=== PATIENT | female | born 1940 | race Caucasian/White ===

== ENCOUNTER 2017-02-16 11:03 | Emergency (ER) | payer OTHER ==
[~2017-02-16] VITALS: Ht 157.5 cm; Wt 82.1 kg
[2017-02-16] MEDS ORDERED: NACL 0.9% 1,000 ML IV ONE (11:08)
[2017-02-16 11:12] VITALS: BP_SYST 149
[2017-02-16] MEDS ORDERED: PANTOPRAZOLE SODIUM 40 MG/VIAL (PROTONIX) IVP ONE (11:15)
[2017-02-16] MEDS ORDERED: ONDANSETRON HCL 4 MG/2 ML VIAL IM ONE (11:15)
--- NOTE | 2017-02-16 11:19 | NUR ---
Patient to ER bed 08 to gown for evaluation. Side rails up.
--- NOTE | 2017-02-16 11:20 | NUR ---
Urine collected and sent to lab.
[2017-02-16 11:43] LABS: BASOPHILS # (AUTO) 0.1 K/uL (0.0-0.2); BASOPHILS % (AUTO) 1.2 % (0.0-2.0); EOSINOPHILS # (AUTO) 0.2 K/uL (0.0-0.4); EOSINOPHILS % (AUTO) 1.8 % (0.0-4.0); HEMATOCRIT 47.8 % (36-48); HEMOGLOBIN 15.4 g/dL (12.0-16.0); LYMPHOCYTES # (AUTO) 2.3 K/uL (1.0-5.5); LYMPHOCYTES % (AUTO) 22.1 % (20.5-51.5); MEAN CORPUSCULAR HEMOGLOBIN 28 pg (27-31); MEAN CORPUSCULAR HGB CONC 32 % (32-36); MEAN CORPUSCULAR VOLUME 88 fL (79.0-98.0); MONOCYTES # (AUTO) 0.8 K/uL (0.0-1.0); MONOCYTES % (AUTO) 7.2 % (1.7-9.3); NEUTROPHILS # (AUTO) 7.1 K/uL (1.8-7.7); NEUTROPHILS % (AUTO) 67.7 % (40.0-70.0); PLATELET COUNT (AUTO) 220 K/uL (130-430); RED BLOOD CELL COUNT(AUTO) 5.46 MIL/uL (4.2-6.2); RED CELL DISTRIBUTION WIDTH 12.5 % (9.0-15.0); WHITE BLOOD COUNT (AUTO) 10.5 K/uL (4.8-10.8)
--- NOTE | 2017-02-16 11:45 | NUR ---
ER at bedside examining patient.
[2017-02-16 11:46] LABS: BILIRUBIN,URINE 1+ (NEGATIVE); BLOOD, URINE NEGATIVE (NEGATIVE); CLARITY/URINE CLEAR (CLEAR); COLOR,URINE YELLOW (YELLOW); GLUCOSE,URINE NEGATIVE (NEGATIVE); KETONES,URINE NEGATIVE (NEGATIVE); LEUKOCYTE ESTERASE ,URINE NEGATIVE (NEGATIVE); NITRITE, URINE NEGATIVE (NEGATIVE); PH,URINE 5.5 (5.0-8.0); PROTEIN URINE TRACE (NEGATIVE); UROBILINOGEN,URINE 0.2 (0.2-1.0)
--- NOTE | 2017-02-16 11:47 | NUR ---
Pt presents to ER c/o blood in stool and abdominal cramping at pain level of 5/10. Pt denies N/V/D/CHEST PAIN/SOB. Pt reports medical history of diverticulitis, gout, HTN. No acute distress noted, AOX4, allergy to cipro noted. at bedside.
[2017-02-16 11:52] LABS: ANION GAP 9 (5-15); CHLORIDE 103 mmol/L (98-107); CREATININE 1.51 mg/dL (0.55-1.30); GLUCOSE 108 mg/dL (70-99); POTASSIUM 4.7 mmol/L (3.5-5.1); SODIUM SERUM 137 mmol/L (136-145); UREA NITROGEN, BLOOD 18 mg/dL (8-21)
[2017-02-16 11:55] LABS: PROTHROMBIN TIME 10.6 SECS (9.5-12.5)
[2017-02-16 11:56] LABS: ALANINE AMINOTRANSFERASE 62 U/L (12-78); ALBUMIN 4.2 g/dL (3.4-4.8); AMYLASE 49 U/L (0-100); ASPARTATE AMINOTRANSFERASE 52 U/L (10-37); LIPASE 129 U/L (73-393)
--- NOTE | 2017-02-16 12:20 | NUR ---
EKG performed at BS by Yuri. Physician given copy of EKG for review.
--- NOTE | 2017-02-16 12:30 | NUR ---
# 20 gauge angiocath placed to RAC. Use of asceptic technique. Opsite placed over site. Blood return noted. Blood for lab drawn from site. Flushed with 10 cc of normal saline. No evidence of infiltration noted. Patient tolerated well.
--- NOTE | 2017-02-16 12:48 | NUR ---
Pt medicated for abdominal cramping and nausea. IVF administered. Pt tolerated well. Will continue to monitor.
[2017-02-16 13:15] VITALS: BP_SYST 142
--- NOTE | 2017-02-16 13:15 | NUR ---
Patient given written and verbal discharge instructions and verbalizes understanding. ER MD discussed with patient the results and treatment provided. Patient in stable condition. ID arm band removed. IV catheter removed intact and dressing applied, no active bleeding. Rx of tylenol,flagyl,bactrim ds given. Patient educated on pain management and to follow up with PMD. Pain Scale 0. Opportunity for questions provided and answered.
== END 2017-02-16 13:15 | disposition home or self-care (01) ==
LOC: SED 11:03
DX: K62.5 Hemorrhage of anus and rectum (principal); M10.9 Gout, unspecified; I10 Essential (primary) hypertension; Z90.710 Acquired absence of both cervix and uterus; Z88.1 Allergy status to other antibiotic agents
CPT/HCPCS: 36415; 80053; 81003; 82150; 82550; 83690; 84484; 85025; 85610; 85730; 93005; 96361; 96372; 96374; 99285; C9113; J2405; J7030

== ENCOUNTER 2022-10-28 13:09 | Emergency (ER) | payer OTHER ==
[~2022-10-28] VITALS: Ht 157.5 cm; Wt 83.9 kg
[2022-10-28 13:20] VITALS: BP_SYST 139; PULSE 80; RESP 16; TEMP 97.2; O2SAT 98
[2022-10-28 14:23] LABS: BASOPHILS % (AUTO) 0.6 % (0.0-2.0); EOSINOPHILS # (AUTO) 0.2 K/uL (0.0-0.4); EOSINOPHILS % (AUTO) 2.7 % (0.0-4.0); HEMATOCRIT 45.5 % (36-48); HEMOGLOBIN 15.1 g/dL (12.0-16.0); LYMPHOCYTES # (AUTO) 2.8 K/uL (1.0-5.5); LYMPHOCYTES % (AUTO) 32.6 % (20.5-51.5); MEAN CORPUSCULAR HEMOGLOBIN 29 pg (27-31); MEAN CORPUSCULAR HGB CONC 33 % (32-36); MEAN CORPUSCULAR VOLUME 89 fL (79.0-98.0); MONOCYTES # (AUTO) 0.7 K/uL (0.0-1.0); MONOCYTES % (AUTO) 8.1 % (1.7-9.3); NEUTROPHILS # (AUTO) 4.9 K/uL (1.8-7.7); PLATELET COUNT (AUTO) 205 K/uL (130-430); RED BLOOD CELL COUNT(AUTO) 5.13 MIL/uL (4.2-6.2); RED CELL DISTRIBUTION WIDTH 13.8 % (9.0-15.0); WHITE BLOOD COUNT (AUTO) 8.7 K/uL (4.8-10.8)
[2022-10-28 14:37] LABS: ACETONE, SERUM NEGATIVE (NEGATIVE)
[2022-10-28 14:40] LABS: ALANINE AMINOTRANSFERASE 37 U/L (12-78); ALBUMIN 3.9 g/dL (3.4-4.8); ANION GAP 12 (5-15); ASPARTATE AMINOTRANSFERASE 38 U/L (10-37); CALCIUM 9.5 mg/dL (8.4-11.0); CARBON DIOXIDE 23 mmol/L (23-29); CHLORIDE 105 mmol/L (98-107); CREATININE 1.43 mg/dL (0.55-1.30); GLUCOSE 143 mg/dL (74-106); POTASSIUM 4.4 mmol/L (3.5-5.1); SODIUM SERUM 140 mmol/L (136-145); TOTAL BILIRUBIN 0.6 mg/dL (0.0-1.0); UREA NITROGEN, BLOOD 21 mg/dL (8-21)
[2022-10-28 14:49] LABS: AMYLASE 59 U/L (0-100); LIPASE 97 U/L (73-393)
[2022-10-28] MEDS ORDERED: NEOM28.37 TP (16:35)
[2022-10-28] MEDS ORDERED: CLIN-142 PO (16:35)
[2022-10-28] MEDS: CLINDAMYCIN HCL 150 MG CAPSULE PO ONE ×2 (16:50→16:51)
[2022-10-28 16:51] VITALS: BP_SYST 123; PULSE 76; RESP 18; TEMP 97.2; O2SAT 100
== END 2022-10-28 16:51 | disposition home or self-care (01) ==
LOC: SED 13:09
DX: L03.316 Cellulitis of umbilicus (principal); R10.33 Periumbilical pain; I10 Essential (primary) hypertension; Z88.1 Allergy status to other antibiotic agents; Z79.899 Other long term (current) drug therapy
CPT/HCPCS: 36415; 76376; 80053; 82009; 82150; 83605; 83690; 85025; 99284

== ENCOUNTER 2023-04-08 11:01 | Emergency (ER) | payer OTHER ==
[~2023-04-08] VITALS: Ht 157.5 cm; Wt 83.9 kg
[~2023-04-08 11:01] MED LIST: CLIN-142 PO; NEOM28.37 TP
[2023-04-08 11:25] VITALS: BP_SYST 159; PULSE 75; TEMP 98; O2SAT 95
[2023-04-08] MEDS: ONDANSETRON HCL 4 MG/2 ML VIAL IVP ONE (12:00)
[2023-04-08 12:02] LABS: BASOPHILS # (AUTO) 0.1 K/uL (0.0-0.2); BASOPHILS % (AUTO) 0.5 % (0.0-2.0); EOSINOPHILS % (AUTO) 0.3 % (0.0-4.0); HEMATOCRIT 45.4 % (36-48); HEMOGLOBIN 15.4 g/dL (12.0-16.0); LYMPHOCYTES % (AUTO) 14.1 % (20.5-51.5); MEAN CORPUSCULAR HEMOGLOBIN 30 pg (27-31); MEAN CORPUSCULAR HGB CONC 34 % (32-36); MEAN CORPUSCULAR VOLUME 87 fL (79.0-98.0); MONOCYTES # (AUTO) 0.8 K/uL (0.0-1.0); NEUTROPHILS % (AUTO) 79.1 % (40.0-70.0); PLATELET COUNT (AUTO) 201 K/uL (130-430); RED CELL DISTRIBUTION WIDTH 13.5 % (9.0-15.0); WHITE BLOOD COUNT (AUTO) 13.9 K/uL (4.8-10.8)
[2023-04-08] MEDS: NACL 0.9% 1,000 ML IV ONE (12:09)
[2023-04-08 12:20] LABS: ANION GAP 13 (5-15); CALCIUM 9.9 mg/dL (8.4-11.0); CARBON DIOXIDE 23 mmol/L (23-29); CHLORIDE 106 mmol/L (98-107); CREATININE 1.41 mg/dL (0.55-1.30); GLUCOSE 128 mg/dL (74-106); POTASSIUM 4.1 mmol/L (3.5-5.1); SODIUM SERUM 142 mmol/L (136-145); UREA NITROGEN, BLOOD 17 mg/dL (8-21)
[2023-04-08 12:24] LABS: PROTHROMBIN TIME 10.4 SECS (9.5-12.5)
[2023-04-08 12:25] LABS: ALANINE AMINOTRANSFERASE 55 U/L (12-78); ALBUMIN 3.7 g/dL (3.4-4.8); ASPARTATE AMINOTRANSFERASE 37 U/L (10-37); BILIRUBIN,DIRECT 0.2 mg/dL (0.0-0.3); LIPASE 25 U/L (16-77); TOTAL BILIRUBIN 0.7 mg/dL (0.0-1.0); TOTAL PROTEIN, SERUM 7.9 g/dL (6.4-8.3)
[2023-04-08] MEDS ORDERED: POLY238P32 PO (12:55)
[2023-04-08] MEDS ORDERED: ACET-2634 PO (12:55)
[2023-04-08] MEDS ORDERED: AUG875 PO (12:55)
[2023-04-08] MEDS ORDERED: DOCU-144 PO (12:55)
[2023-04-08] MEDS: metroNIDAZOLE 500 mg/NS 100 ML IV ONE (13:00)
[2023-04-08] MEDS ORDERED: cefTRIAXone 2 GM VIAL ONE (13:08)
[2023-04-08 15:07] VITALS: BP_SYST 159; PULSE 75; TEMP 98; O2SAT 95
== END 2023-04-08 15:05 | disposition home or self-care (01) ==
LOC: SED 11:01
DX: K57.92 Diverticulitis of intestine, part unspecified, without perforation or abscess without bleeding (principal); K51.211 Ulcerative (chronic) proctitis with rectal bleeding; I10 Essential (primary) hypertension; Z88.1 Allergy status to other antibiotic agents; Z79.899 Other long term (current) drug therapy
CPT/HCPCS: 99285; 74176; 96365; 96361; 80076; 80048; 83690; 85025; 85610; 85730; 86886; 86900; 86901; 36415; 76376; 96368; J0696; J3490; J7030